=== PATIENT | female | born 1985 | race Caucasian/White ===

== ENCOUNTER 2018-03-20 06:24 | Day surgery (SDC) | payer OTHER ==
[2018-03-19 12:31] VITALS: BMI 29.5
[2018-03-20 06:53] VITALS: TEMP 98
[2018-03-20] MEDS ORDERED: PROPOFOL 20 ML ONE (07:51)
[2018-03-20] MEDS ORDERED: SUCCINYLCHOLINE CHLORIDE 200 MG/10 ML VIAL ONE (07:51)
[2018-03-20] MEDS ORDERED: MIDAZOLAM HCL 2 MG/2 ML SINGLE DOSE VIAL ONE (07:51)
--- NOTE | 2018-03-20 08:16 | HP ---
[facility] - Chief Complaint Chief Complaint: Posterior scalp mass History Source: Patient Limitations to Obtaining History: No Limitations - Past Medical History Allergies/Adverse Reactions: Allergies Allergy/AdvReac Type Severity Reaction Status Date / Time No Known Drug Allergies Allergy Verified 03/20/18 06:56 SEASONAL Allergy ITCHY Uncoded 03/20/18 06:56 THROAT, WATERY EYES ...LMP: 02/19/18 - Current Medications Current Medications: Home Medications Medication Instructions Recorded Cetirizine HCl [Zyrtec -] 10 mg PO DAILY 03/19/18 Ibuprofen [Advil -] 200 mg PO QID 03/19/18 Satellite Physical Exam - Physical Examination Vital Signs: Vital Signs Period Temp Pulse Resp BP Sys/Edgar Pulse Ox Last 24 Hr 98.0 F-98.0 F 91-91 20-20 122-122/88-88 100 General Appearance: Calm ENT: Other (Posterior scalp mass- mobile, no erythema) Lung: Clear to auscultation Heart: Regular rate & rhythm Abdomen: Soft Neurological: Alert, Oriented Satellite Impression/Plan - Impression/Plan Impression: Posterior scalp mass Operative Procedure: Excision of posterior scalp mass Date to be Performed: 03/20/18
[2018-03-20] MEDS ORDERED: BACITRACIN 15 GM TUBE TOPICAL OINTMENT ONE (08:23)
[2018-03-20] MEDS ORDERED: ceFAZolin SODIUM 1 GM VIAL ONE ×2 (08:25→08:27)
[2018-03-20] MEDS ORDERED: ceFAZolin SODIUM 1 GM VIAL IVPB ONE (08:28)
[2018-03-20] MEDS ORDERED: BACITRACIN 15 GM TUBE TOPICAL OINTMENT TP ONE (08:30)
[2018-03-20] MEDS ORDERED: LIDOCAINE 1%/EPI 1:100000 (50 ML MULTI DOSE VIAL) INF ONE ×2 (08:35)
[2018-03-20] MEDS ORDERED: DEXAMETHASONE SOD PHOSPHATE 4 MG/1 ML VIAL ONE (08:39)
[2018-03-20 11:34] VITALS: BP 131/86; PULSE 90
--- NOTE | 2018-03-20 11:46 | OP ---
Operative Note - Note: Operative Date: 03/20/18 Pre-Operative Diagnosis: Posterior scalp mass 2cm x 2cm Operation: Excision of posterior scalp mass Post-Operative Diagnosis: Same as Pre-op Surgeon: David Tejada Anesthesia: Local, MAC Specimens Removed: Posterior scalp mass Estimated Blood Loss (mls): 5 Operative Report Dictated: Yes
--- NOTE | 2018-03-20 13:16 | OP ---
DATE OF OPERATION: 03/20/2018 SURGEON: Sarina Tejada MD PREOPERATIVE DIAGNOSIS: Posterior scalp mass 2 cm x 2 cm in size. POSTOPERATIVE DIAGNOSIS: Ruptured mass appearing to be consistent with a ruptured epidermal inclusion cyst, 2 cm x 2 cm in size. PROCEDURE: Excision of posterior scalp mass. SPECIMENS: Posterior scalp mass. ESTIMATED BLOOD LOSS: 5 mL. DRAINS: None. ANESTHESIA: MAC/local. REASON FOR PROCEDURE: This is a 33-year-old female who presented to the office for a mass at the posterior aspect of the scalp that caused discomfort and was increased slightly in size. Because of this, she requested for excision. The risks and benefits of the procedure of an open excision of the posterior scalp mass were explained, which included bleeding, infection, recurrence of the mass, wound dehiscence, wound infection, injury to surrounding structures, CT, DVT, PE, and some other complications. Patient understood and signed informed consent. DESCRIPTION OF PROCEDURE: Patient was placed in the right lateral decubitus position. She underwent MAC by Anesthesia. The area was prepped and draped with Betadine in the usual sterile fashion. Time-out was performed. A transverse incision was made, and the mass was dissected circumferentially. The mass was noted to be ruptured, and the portions of it were removed. After all portions were dissected and removed, the wound was irrigated, and hemostasis was obtained. Then, 2-0 nylon sutures were used to close the skin, and Betadine was placed on over the wounds. She tolerated the procedure well, transferred to recovery room in stable condition. SARINA TEJADA M.D. SHAMIKA/[id number]
--- NOTE | 2018-03-25 17:38 | PATH ---
Surgical Pathology Report Patient Name: ROCKY BROOKS [facility]. Rec. #: [id number] /Age/Gender: 1985 (Age: 33) / F Account: [id number] Location: [facility] SURGICAL Taken: 03/20/2018 Received: 03/20/2018 Reported: 03/25/2018 Physicians: David Tejada M.D. Specimen(s) Received MASS OF POSTERIOR SCALP Clinical History Localized swelling of mass posterior scalp Final Diagnosis POSTERIOR SCALP, MASS, EXCISION: EPIDERMAL INCLUSION CYST. Electronically Signed Eileen Du M.D. Gross Description Received in formalin labeled "posterior scalp mass," is a 3.5 x 2.5 x 0.5 cm aggregate of falk soft tissue fragments, possibly consistent with cyst contents. A collections representative portion is submitted in one cassette. /03/21/2018 saudi03/21/2018
== END 2018-03-20 10:30 | disposition home or self-care (01) ==
LOC: JASU-SURG 06:24
PROVIDERS: ATTEND Surgery
PROC: 0HB0XZX Excision of Scalp Skin, External Approach, Diagnostic (ICD-10-PCS; principal; 2018-03-20 08:00)
DX: L72.0 Epidermal cyst (principal)
CPT/HCPCS: 84703; 88304-TC

== ENCOUNTER 2023-02-20 14:57 | Emergency (ER) | payer OTHER ==
[2023-02-20 15:05] VITALS: BMI 32.3
[2023-02-20] MEDS ORDERED: ACETAMINOPHEN 500 MG TABLET (FP) PO ONE (16:16)
[2023-02-20] MEDS ORDERED: KETOROLAC TROMETHAMINE 15 MG/ML VIAL IM ONE (16:17)
[2023-02-20] MEDS ORDERED: LIDOCAINE 5% TOPICAL PATCH TP ONE (16:18)
[2023-02-20] MEDS ORDERED: METHOCARBAMOL 500 MG TABLET PO ONE (16:18)
[2023-02-20] MEDS ORDERED: METHOCARBAMOL 500 MG TABLET ONE (17:31)
[2023-02-20] MEDS ORDERED: LIDOCAINE 5% TOPICAL PATCH ONE (17:32)
[2023-02-20] MEDS ORDERED: KETOROLAC TROMETHAMINE 15 MG/ML VIAL ONE (17:32)
[2023-02-20] MEDS ORDERED: ACETAMINOPHEN 325 MG TABLET (FP) ONE (17:32)
[2023-02-20 18:56] VITALS: BP 140/99; PULSE 87; RESP 14; TEMP 99.2
[2023-02-20] MEDS ORDERED: LIDOCAINE PATCH REMOVAL MC ONE (22:00)
== END 2023-02-20 20:26 | disposition home or self-care (01) ==
LOC: JER 14:57
PROC: 3E0233Z Introduction of Anti-inflammatory into Muscle, Percutaneous Approach (ICD-10-PCS; principal; 2023-02-20)
DX: M54.50 Low back pain, unspecified (principal); M25.571 Pain in right ankle and joints of right foot; M25.572 Pain in left ankle and joints of left foot; R20.2 Paresthesia of skin; R00.0 Tachycardia, unspecified; R03.0 Elevated blood-pressure reading, without diagnosis of hypertension; W11.XXXA Fall on and from ladder, initial encounter; Y92.195 Garage of other specified residential institution as the place of occurrence of the external cause
CPT/HCPCS: 70450-TC; 72125-TC; 72128-TC; 72131-TC; 73610-TC-LT-FY; 73610-TC-RT-FY; 73630-TC-LT; 73630-TC-RT-FY; 84703; 99285-25